=== PATIENT | female | born 1950 | race Caucasian/White ===

== ENCOUNTER 2019-11-26 15:59 | Emergency (ER) | payer OTHER ==
[~2019-11-26] VITALS: Ht 162.6 cm; Wt 67.1 kg
[2019-11-26] MEDS ORDERED: MUCINEX1200 MG PO (18:25)
[2019-11-26] MEDS ORDERED: PROMETH-CODEIN 65 ML PO (18:25)
== END 2019-11-26 18:31 | disposition home or self-care (01) ==
LOC: ER 15:59
DX: R05 Cough (principal)